=== PATIENT | female | born 1975 | race Caucasian/White ===

== ENCOUNTER 2016-08-11 08:55 | Emergency (ER) | payer SELFPAY ==
[~2016-08-11] VITALS: Ht 160 cm; Wt 75.0 kg
[~2016-08-11 08:55] MED LIST: AMOX875 PO; CETI10 PO; FLON0.053; PERM5CRE TOP; PRED20 PO
[2016-08-11 08:57] VITALS: BP 144/88; PULSE 81; RESP 15; TEMP 98.3; O2SAT 98
[2016-08-11 10:02] VITALS: BP 141/85; PULSE 66; RESP 16; O2SAT 100
[2016-08-11] MEDS ORDERED: SODIUM CHLOR 0.9% 1000 ML INJ 1,000 ML IV SCH (10:41)
[2016-08-11] MEDS ORDERED: SODIUM CHLORIDE 0.9% FLUSH 10 ML FLUSH IV FLUSH PRN (10:45)
[2016-08-11] MEDS ORDERED: ONDANSETRON HCL 4 MG/2 ML VIAL IVP ONE (10:45)
[2016-08-11] MEDS ORDERED: MORPHINE SULFATE 4 MG/ML INJ IV PUSH ONE (10:45)
--- NOTE | 2016-08-11 10:51 | PD ---
HPI Chief Complaint: Abdominal Pain Time Seen by Provider: 10:44 Travel History International Travel<30 days: No Contact w/Intl Traveler<30days: No Traveled to known affect area: No History of Present Illness HPI 41-year-old female presents the emergency department with right upper quadrant pain which started this morning is gotten progressively worse since waking this morning. Patient states history of gallstone in the past verified on ultrasound which has not been recently until today. Patient states she did have a similar episode approximately 3 months ago where they ultrasound was performed. Patient has been doing fine until this morning. Patient states the pain is now progressed to 9/10 with nausea and vomiting 3 prior to arrival. He only had coffee this morning but no food. She denies pain yesterday or the liver, chills, diarrhea, or changes in her urine. She is allergic to Percocet and aspirin. PFSH Past Medical History Cancer: No Diminished Hearing: No Genitourinary: Yes Respiratory: No Influenza Vaccination: No ?: Not LMP: 2015 : 4 Para: 2 Miscarriage: 0 : 1 Past Surgical History Section: Yes Gynecologic Surgery: Yes (TUBAL LIGATION) Tonsillectomy: Yes (ADENOIDS) Other Surgery: No Social History Alcohol Use: Yes (OCCASIONALLY) Tobacco Use: Yes (1 PPD) Substance Use: No Allergies-Medications (Allergen,Severity, Reaction): Coded Allergies: Aspirin (Verified Allergy, Mild, Rash, 08/11/16) Percocet (Verified Allergy, Mild, WEAK NAUSEA AND LIGHTHEADED, 08/11/16) Reported Meds & Prescriptions Reported Meds & Active Scripts Active Zofran (Ondansetron HCl) 4 Mg Tab 4 Mg PO Q6HR PRN Review of Systems Except as stated in HPI: all other systems reviewed are Neg General / Constitutional: No: Fever, Chills Eyes: No: Visual changes HENT: No: Headaches Cardiovascular: No: Chest Pain or Discomfort Respiratory: No: Shortness of Breath Gastrointestinal: Positive: Nausea, Vomiting, Abdominal Pain, No: Diarrhea Genitourinary: No: Dysuria Musculoskeletal: No: Pain Skin: No Rash Neurologic: No: Weakness Psychiatric: No: Depression Endocrine: No: Polydipsia Hematologic/Lymphatic: No: Easy Bruising Physical Exam Narrative GENERAL: She appears in [id number] distress. SKIN: Warm and dry. Normal color. Normal turgor. HEAD: Atraumatic. Normocephalic. EYES: Pupils equal and round. No scleral icterus. No injection or drainage. ENT: No nasal bleeding or discharge. Mucous membranes pink and moist. Pharynx is clear. Airway is patent. NECK: Trachea midline. Supple and nontender. CARDIOVASCULAR: Regular rate and rhythm. RESPIRATORY: No accessory muscle use. Clear to auscultation. Breath sounds equal bilaterally. GASTROINTESTINAL: Abdomen soft, moderate right upper quadrant tenderness, nondistended. Hepatic and splenic margins not palpable. No CVA tenderness. MUSCULOSKELETAL: Extremities without clubbing, cyanosis, or edema. No obvious deformities. NEUROLOGICAL: Awake and alert. No obvious cranial nerve deficits. Motor grossly within normal limits. Five out of 5 muscle strength in the arms and legs. Normal speech. PSYCHIATRIC: Appropriate mood and affect; insight and judgment normal. Data Data Last Documented VS Vital Signs Date Time Temp Pulse Resp B/P Pulse Ox O2 Delivery O2 Flow Rate FiO2 08/11/16 10:02 66 16 141/85 100 Room Air 08/11/16 08:57 98.3 Orders Complete Blood Count With Diff (08/11/16 10:41) Comprehensive Metabolic Panel (08/11/16 10:41) Lipase (08/11/16 10:41) Lactic Acid (08/11/16 10:41) Prothrombin Time / Inr (Pt) (08/11/16 10:41) Act Partial Throm Time (Ptt) (08/11/16 10:41) Urinalysis - C+S If Indicated (08/11/16 10:41) Us Abdomen Gallbladder (08/11/16 ) Iv Access Insert/Monitor (08/11/16 10:41) Ecg Monitoring (08/11/16 10:41) Oximetry (08/11/16 10:41) NPO (08/11/16 10:41) Morphine Inj (Morphine Inj) (08/11/16 10:45) Ondansetron Inj (Zofran Inj) (08/11/16 10:45) Sodium Chlor 0.9% 1000 Ml Inj (Ns 1000 M (08/11/16 10:41) Sodium Chloride 0.9% Flush (Ns Flush) (08/11/16 10:45) Electrocardiogram (08/11/16 10:41) Ed Urine Pregnancytest Poc (08/11/16 10:41) Hydromorphone Pf Inj (Dilaudid Pf Inj) (08/11/16 11:30) Labs Laboratory Tests Test 08/11/16 08/11/16 10:45 10:48 White Blood Count 9.3 TH/MM3 Red Blood Count 4.66 MIL/MM3 Hemoglobin 14.8 GM/DL Hematocrit 42.5 % Mean Corpuscular Volume 91.3 FL Mean Corpuscular Hemoglobin 31.8 PG Mean Corpuscular Hemoglobin 34.8 % Concent Red Cell Distribution Width 12.2 % Platelet Count 180 TH/MM3 Mean Platelet Volume 9.4 FL Neutrophils (%) (Auto) 71.0 % Lymphocytes (%) (Auto) 21.5 % Monocytes (%) (Auto) 5.9 % Eosinophils (%) (Auto) 1.2 % Basophils (%) (Auto) 0.4 % Neutrophils # (Auto) 6.6 TH/MM3 Lymphocytes # (Auto) 2.0 TH/MM3 Monocytes # (Auto) 0.5 TH/MM3 Eosinophils # (Auto) 0.1 TH/MM3 Basophils # (Auto) 0.0 TH/MM3 CBC Comment DIFF FINAL Differential Comment Prothrombin Time 11.4 SEC Prothromb Time International 1.0 RATIO Ratio Activated Partial 28.2 SEC Thromboplast Time Sodium Level 142 MEQ/L Potassium Level 4.4 MEQ/L Chloride Level 109 MEQ/L Carbon Dioxide Level 28.7 MEQ/L Anion Gap 4 MEQ/L Blood Urea Nitrogen 10 MG/DL Creatinine 0.67 MG/DL Estimat Glomerular Filtration 98 ML/MIN Rate Random Glucose 92 MG/DL Lactic Acid Level 1.1 mmol/L Calcium Level 9.3 MG/DL Total Bilirubin 0.2 MG/DL Aspartate Amino Transf 21 U/L (AST/SGOT) Alanine Aminotransferase 23 U/L (ALT/SGPT) Alkaline Phosphatase 77 U/L Total Protein 7.6 GM/DL Albumin 3.7 GM/DL Lipase 199 U/L Urine Color LIGHT-YELLOW Urine Turbidity CLEAR Urine pH 6.0 Urine Specific [place] 1.002 Urine Protein NEG mg/dL Urine Glucose (UA) NEG mg/dL Urine Ketones NEG mg/dL Urine Occult Blood NEG Urine Nitrite NEG Urine Bilirubin NEG Urine Urobilinogen LESS THAN 2.0 MG/DL Urine Leukocyte Esterase NEG Urine RBC LESS THAN 1 /hpf Urine WBC 1 /hpf Urine Squamous Epithelial <1 /hpf Cells Urine Bacteria OCC /hpf Microscopic Urinalysis Comment CULT NOT INDICATED MDM Medical Decision Making Medical Screen Exam Complete: Yes Emergency Medical Condition: Yes Medical Record Reviewed: Yes Differential Diagnosis Right upper quadrant pain. Nausea. Vomiting. Gallbladder disease. Narrative Course Patient is medically stable at time of exam. Labs are Ordered including CBC, CMP, lactic acid, lipase, urinalysis, and urine . IV access is obtained and the patient is given 4 mg of Zofran IV as well as 4 mg morphine IV. Ultrasound of the gallbladder is ordered. Patient requires 1 mg Dilantin after ultrasound due to some increased pain. CBC is unremarkable. CMP is unremarkable. Lactic acid is normal. Lipase is normal. Urinalysis is unremarkable. Ultrasound confirms a gallstone is present no thickening is no evidence of gallbladder. Patient is discussed with and evaluated by Dr. Man who feels the patient is able for discharge with outpatient follow-up. Diagnosis Primary Impression: Gall bladder pain Additional Impression: Recurrent biliary colic Referrals: [facility] Patient Instructions: Gallstones (ED), General Instructions Additional Instructions: CBC is unremarkable. CMP is unremarkable. Lactic acid is normal. Lipase is normal. Urinalysis is unremarkable. Ultrasound confirms a gallstone is present no thickening is no evidence of gallbladder. Patient is discussed with and evaluated by Dr. Man who feels the patient is able for discharge with outpatient follow-up. Med/Other Pt SpecificInfo: Prescription(s) given Scripts Ondansetron (Zofran)4 Mg Tab4 Mg PO Q6HR PRN (NAUSEA OR VOMITING) #12 TAB Prov:Jailene Man MD 08/11/16 Disposition: 01 DISCHARGE HOME Condition: Stable Donovan Adan Aug 11, 2016 10:51
[2016-08-11 10:57] LABS: AUTOMATED NEUTROPHIL # 6.6 TH/MM3 (1.8-7.7); BASOPHIL % 0.4 % (0.0-2.0); EOSINOPHIL # 0.1 TH/MM3 (0-0.4); EOSINOPHIL % 1.2 % (0.0-4.0); HEMATOCRIT 42.5 % (35.0-46.0); HEMO FLAGS DIFF FINAL; LYMPH % 21.5 % (9.0-44.0); MEAN CELL VOLUME 91.3 FL (80.0-100.0); MEAN CORPUSCULAR HEMOGLOBIN 31.8 PG (27.0-34.0); MEAN CORPUSCULAR HGB CONC 34.8 % (32.0-36.0); MONO % 5.9 % (0.0-8.0); PLATELET COUNT 180 TH/MM3 (150-450); RED BLOOD COUNT 4.66 MIL/MM3 (4.00-5.30); RED CELL DISTRIBUTION WIDTH 12.2 % (11.6-17.2); WHITE BLOOD COUNT 9.3 TH/MM3 (4.0-11.0)
[2016-08-11 11:07] LABS: APTT (PATIENT) 28.2 SEC (24.3-30.1); PROTHROMBIN TIME - PATIENT 11.4 SEC (9.8-11.6)
[2016-08-11 11:15] LABS: ALT (GPT) 23 U/L (10-53); ANION GAP 4 MEQ/L (5-15); AST (GOT) 21 U/L (15-37); BICARBONATE 28.7 MEQ/L (21.0-32.0); BLOOD UREA NITROGEN 10 MG/DL (7-18); CHLORIDE 109 MEQ/L (98-107); GLOMERULAR FILTRATION RATE 98 ML/MIN (>89); POTASSIUM 4.4 MEQ/L (3.5-5.1); SODIUM (NA) 142 MEQ/L (136-145)
[2016-08-11 11:17] LABS: ALKALINE PHOSPHATASE 77 U/L (45-117); TOTAL BILIRUBIN ADULT 0.2 MG/DL (0.2-1.0)
[2016-08-11] MEDS ORDERED: HYDROmorphone HCL PF 1 MG/ML VIAL IV PUSH ONE (11:30)
[2016-08-11 11:35] LABS: BACTERIA, URINE OCC /hpf; BLOOD, URINE NEG (NEG); COMMENT (UR) CULT NOT INDICATED; CULTURE IF INDICATED CULT NOT INDICATED; GLUCOSE,URINE NEG (NEG); KETONE, URINE NEG (NEG); NITRITE,URINE NEG (NEG); SQUAMOUS EPITHELIAL CELL URINE <1 /hpf (0-5); URINE COLOR LIGHT-YELLOW (YELLW/STRAW)
--- NOTE | 2016-08-11 12:15 | RADRPT ---
EXAM DATE/TIME: 08/11/2016 10:51 [facility] COMPARISON: No previous studies available for comparison. INDICATIONS : Right upper quadrant pain. MEDICAL HISTORY : Right upper quadrant pain. UTI. SURGICAL HISTORY : Tonsillectomy. Tubal ligation. section. Adenoidectomy. ENCOUNTER: Initial ACUITY: 1 day PAIN SCORE: 6/10 LOCATION: Right upper quadrant MEASUREMENTS: LIVER: 16.2 cm length COMMON DUCT: 4 mm RIGHT KIDNEY: 9.7 x 5.0 x 3.7 cm FINDINGS: LIVER: Normal echotexture without focal lesion or ductal dilatation. COMMON DUCT: No intraluminal mass or stone visualized. GALLBLADDER: There is a 1.9 cm gallstone seen in the gallbladder neck. The stone did not appear to be mobile. The gallbladder is distended. Gallbladder wall is not thickened measuring 2 mm. PANCREAS: The visualized portions are within normal limits. RIGHT KIDNEY: There does appear to be some cortical thinning seen at the superior aspect of the right kidney. No hy dronephrosis is seen. There is a 1.7 cm cyst at the mid right kidney. CONCLUSION: 1. Nonmobile gallstone. The gallbladder is distended but not significantly thickened. This can be cor related with the patient's right upper quadrant pain. 2. Suspected cortical thinning at the superior right kidney. Jan Casanova MD on August 11, 2016 at 12:08 Board Certified Radiologist. This report was verified electronically.
[2016-08-11] MEDS ORDERED: ZOFR4TAB PO (12:31)
[2016-08-11 12:34] VITALS: BP 108/62; PULSE 59; RESP 14; O2SAT 98
--- NOTE | 2016-08-12 17:12 | EKG ---
Date Performed: 08/11/2016 Time Performed: 11:23:47 PTAGE: 41 years EKG: SINUS BRADYCARDIA BORDERLINE ECG NO PREVIOUS TRACING DOCTOR: Julia Lyle Interpretating Date/Time 08/12/2016 17:08:04
== END 2016-08-11 12:49 | disposition home or self-care (01) ==
LOC: NEPD 08:55
DX: K80.70 Calculus of gallbladder and bile duct without cholecystitis without obstruction (principal); F17.210 Nicotine dependence, cigarettes, uncomplicated; R11.2 Nausea with vomiting, unspecified; R00.1 Bradycardia, unspecified
CPT/HCPCS: 76705; 80053; 81001; 83605; 83690; 84703; 85025; 85610; 85730; 93005; 96361; 96374; 96375; 99285; J1170; J2270; J2405; J7030

== ENCOUNTER 2017-04-06 20:47 | Emergency (ER) | payer BC ==
[~2017-04-06 20:47] MED LIST changes: -AMOX875 PO; -CETI10 PO; -FLON0.053; -PERM5CRE TOP; -PRED20 PO; +ZOFR4TAB PO
[2017-04-06 20:49] VITALS: BP 117/75; PULSE 106; RESP 16; TEMP 101.8; O2SAT 100
[2017-04-06] MEDS ORDERED: ACETAMINOPHEN 325 MG TAB PO ONE (21:45)
[2017-04-06] MEDS ORDERED: SODIUM CHLOR 0.9% 1000 ML INJ 1,000 ML IV ONE ×2 (21:45→23:45)
--- NOTE | 2017-04-06 22:19 | PD ---
HPI Chief Complaint: Cold / Flu Symptoms Time Seen by Provider: 21:20 Travel History International Travel<30 days: No Contact w/Intl Traveler<30days: No Traveled to known affect area: No History of Present Illness HPI The patient is a 41 year old female who presents to the [facility] emergency department with a history of febrile illness that she reports began on Thursday 4 days ago. The patient reports that her T-max has been 101.9. The patient reports that she does have a cough, however it is no worse than usual. She reports that she has a chronic smoker's cough. The patient reports that she has had some mild nasal congestion, frontal headache, however no sore throat or rhinorrhea. She reports that today she had 2 episodes of vomiting. She denies having any diarrhea. She reports that she has had urinary frequency and urgency and has a remote history of having kidney infection in the past. She reports that the symptoms feel similar. She reports having bilateral flank pain worse on the right compared to the left. She denies having any diarrhea. Her last bowel movement was earlier today. Review of systems otherwise, the patient denies having any neck pain, chest pain, chest pressure, shortness of breath, abdominal pain, or neurologic symptoms. LMP: Reportedly postmenopausal PFSH Past Medical History Narrative Medical The patient's past medical history is significant for rectal prolapse into her vagina diagnosed 2 weeks ago by her community midwife pending surgery, history of a remote history of kidney infection, incidental large gallstone in her gallbladder. Her primary care physician is Dr. Morgan. Cancer: No Diminished Hearing: No Genitourinary: Yes Medical other: Yes (gall stones) Respiratory: No ?: Not : 4 Para: 2 Miscarriage: 0 : 1 Past Surgical History Narrative Surgical The patient's past surgical history is significant for tympanostomy tube placement, Section: Yes Gynecologic Surgery: Yes (TUBAL LIGATION) Tonsillectomy: Yes (ADENOIDS) Other Surgery: No Social History Alcohol Use: Yes (OCCASIONALLY) Tobacco Use: Yes (1 PPD) Substance Use: No Allergies-Medications (Allergen,Severity, Reaction): Coded Allergies: aspirin (Verified Allergy, Mild, Rash, 04/06/17) oxycodone (Verified Allergy, Mild, WEAK NAUSEA AND LIGHTHEADED, 04/06/17) Reported Meds & Prescriptions Reported Meds & Active Scripts Active Phenergan (Promethazine HCl) 25 Mg Tablet 25 Mg PO Q6H PRN Cipro (Ciprofloxacin HCl) 500 Mg Tab 500 Mg PO BID 7 Days Review of Systems Except as stated in HPI: all other systems reviewed are Neg General / Constitutional: Positive: Fever Eyes: No: Visual changes HENT: Positive: Congestion, No: Headaches, Sore Throat, Rhinorrhea Cardiovascular: No: Chest Pain or Discomfort Respiratory: Positive: Cough, No: Shortness of Breath Gastrointestinal: Positive: Nausea, Vomiting, No: Diarrhea, Abdominal Pain Genitourinary: Positive: Urgency, Frequency, Flank Pain, No: Dysuria Musculoskeletal: Positive: Myalgias, Pain Skin: No Rash Neurologic: Positive: Headache, No: Weakness, Focal Abnormalities, Change in Mentation, Slurred Speech, Sensory Disturbance Psychiatric: No: Depression Endocrine: No: Polydipsia Hematologic/Lymphatic: No: Easy Bruising Physical Exam Narrative General: The patient is a well-developed well-nourished female in no acute distress. Head and Neck exam: Head is normocephalic atraumatic. Eyes: EOMI, pupils are equal round and reactive to light. Nose: Midline septum with pink mucous membranes Mouth: Dentition unremarkable. Moist mucus membranes. Posterior oropharynx is not erythematous. No tonsillar hypertrophy. Uvula midline. Airway patent. Neck: No palpable lymphadenopathy. No nuchal rigidity. No thyromegaly. Cardiovascular: Sinus tachycardia in the low 100s, however she is currently afebrile without murmurs, gallops, or rubs. No pulse deficit to the extremities on simultaneous auscultation and palpation of her radial artery. Lungs: Clear to auscultation bilaterally. No wheezes, rhonchi, or rales. Abdomen: Soft, without tenderness to palpation in all 4 quadrants of the abdomen. No guarding, rebound, or rigidity. Normal bowel sounds are audible. No tenderness on palpation of McBurney's point. Negative Alexandre sign. Extremities: No clubbing, cyanosis, or edema. 2+ pulses in all 4 extremities. No calf tenderness on palpation. Back: No spinous process tenderness to palpation. The patient has no CVA tenderness noted on palpation. Neurologic Exam: Grossly nonfocal. Skin Exam: No rash noted. Intact skin that is warm and dry. Data Data Last Documented VS Vital Signs Date Time Temp Pulse Resp B/P (MAP) Pulse Ox O2 Delivery O2 Flow Rate FiO2 04/06/17 22:21 97 Room Air 04/06/17 20:49 101.8 106 16 Orders Orders Complete Blood Count With Diff (04/06/17 21:42) Comprehensive Metabolic Panel (04/06/17 21:42) Lipase (04/06/17 21:42) Magnesium (Mg) (04/06/17 21:42) Blood Culture (04/06/17 21:42) Urinalysis - C+S If Indicated (04/06/17 21:42) Beta Hydroxybutyrate (Acetone) (04/06/17 21:42) Influenzae A/B Antigen (04/06/17 21:42) Chest, Single Ap (04/06/17 21:42) Iv Access Insert/Monitor (04/06/17 21:42) Ecg Monitoring (04/06/17 21:42) Oximetry (04/06/17 21:42) Ed Urine Pregnancytest Poc (04/06/17 21:42) Sodium Chlor 0.9% 1000 Ml Inj (Ns 1000 M (04/06/17 21:45) Acetaminophen (Tylenol) (04/06/17 21:45) Ondansetron Inj (Zofran Inj) (04/06/17 22:45) Oral Rehydration (04/06/17 22:45) Urine Culture (04/06/17 22:00) Ceftriaxone Inj (Rocephin Inj) (04/06/17 23:45) Sodium Chlor 0.9% 1000 Ml Inj (Ns 1000 M (04/06/17 23:45) Ed Discharge Order (04/07/17 00:25) Labs Laboratory Tests Test 04/06/17 22:00 White Blood Count 12.1 TH/MM3 Red Blood Count 4.20 MIL/MM3 Hemoglobin 13.0 GM/DL Hematocrit 37.6 % Mean Corpuscular Volume 89.5 FL Mean Corpuscular Hemoglobin 31.0 PG Mean Corpuscular Hemoglobin Concent 34.7 % Red Cell Distribution Width 12.0 % Platelet Count 201 TH/MM3 Mean Platelet Volume 9.0 FL Neutrophils (%) (Auto) 78.8 % Lymphocytes (%) (Auto) 12.1 % Monocytes (%) (Auto) 8.4 % Eosinophils (%) (Auto) 0.4 % Basophils (%) (Auto) 0.3 % Neutrophils # (Auto) 9.6 TH/MM3 Lymphocytes # (Auto) 1.5 TH/MM3 Monocytes # (Auto) 1.0 TH/MM3 Eosinophils # (Auto) 0.1 TH/MM3 Basophils # (Auto) 0.0 TH/MM3 CBC Comment DIFF FINAL Differential Comment Urine Color YELLOW Urine Turbidity HAZY Urine pH 5.5 Urine Specific [place] 1.017 Urine Protein 30 mg/dL Urine Glucose (UA) NEG mg/dL Urine Ketones NEG mg/dL Urine Occult Blood MOD Urine Nitrite POS Urine Bilirubin NEG Urine Urobilinogen LESS THAN 2.0 MG/DL Urine Leukocyte Esterase LARGE Urine RBC 10 /hpf Urine WBC /hpf Urine WBC Clumps OCC Urine Squamous Epithelial Cells 5 /hpf Urine Bacteria MOD /hpf Microscopic Urinalysis Comment CULTURE INDICATED Blood Urea Nitrogen 19 MG/DL Creatinine 0.82 MG/DL Random Glucose 94 MG/DL Total Protein 7.5 GM/DL Albumin 3.2 GM/DL Calcium Level 8.8 MG/DL Magnesium Level 2.2 MG/DL Alkaline Phosphatase 67 U/L Aspartate Amino Transf (AST/SGOT) 15 U/L Alanine Aminotransferase (ALT/SGPT) 17 U/L Total Bilirubin 0.3 MG/DL Sodium Level 141 MEQ/L Potassium Level 3.7 MEQ/L Chloride Level 108 MEQ/L Carbon Dioxide Level 26.1 MEQ/L Anion Gap 7 MEQ/L Estimat Glomerular Filtration Rate 78 ML/MIN Lipase 138 U/L B-Hydroxybutyrate 0.09 MMOL/L MDM Medical Decision Making Medical Screen Exam Complete: Yes Emergency Medical Condition: Yes Medical Record Reviewed: Yes Interpretation(s) Last Impressions Chest X-Ray 04/06/172141 Signed Impressions: Service Date/Time: Thursday, April 06, 2017 21:59 - CONCLUSION: No acute disease. Leopoldo Mondragon MD Differential Diagnosis Pyelonephritis, versus cystitis, versus influenza, versus pneumonia, versus sepsis Narrative Course During the course of the patient's emergency department visit, the patient's history, examination, and differential diagnosis were reviewed with the patient. The patient was placed on a quality assurance monitor final with oximetry and frequent blood pressure monitoring. The patient had IV access obtained and blood work sent for analysis. The patient was initially provided normal saline 1 L IV fluid bolus, Tylenol for fever, Zofran for nausea. The patient was started on oral rehydration therapy. The patient's laboratory studies were reviewed and remarkable for a white count of 12.1, hemoglobin 13, platelets 201 with 78.8 neutrophils, CMP is remarkable for chloride of 108, BUN 19, GFR 78, albumin 3.2, lipase 138 beta hydroxybutyrate is 0.0 urinalysis reveals a moderate occult blood positive nitrite large leukocyte esterase 10 RBCs innumerable WBCs, occasional white blood cell clumps, moderate bacteria influenza testing is negative. A chest x- ray that shows no acute abnormality The patient has been tolerating p.o. hydration while in the emergency department. The patient will be discharged home on ciprofloxacin for antibiotic and Phenergan for nausea. The patient is resting comfortably and feels better, is alert and in no distress. The patient's results and examination findings were discussed with the patient. The repeat examination is unremarkable and benign. The history, exam, diagnostic testing, and current condition do not suggest any significant pathology to warrant further testing, continued ED treatment, admission, or surgical evaluation at this point. The vital signs have been stable. The patient does not have uncontrollable pain, intractable vomiting, or other significant symptoms. The patient's condition is stable and appropriate for discharge. The patient will pursue further outpatient evaluation with a primary care physician or other designated or consulting physician as indicated in the discharge instructions. The patient expressed understanding and was agreeable with this plan. Diagnosis Primary Impression: Pyelonephritis Referrals: Primary Care Physician 2 days Patient Instructions: General Instructions, Kidney Infection (ED) Med/Other Pt SpecificInfo: Prescription(s) given Scripts Promethazine (Phenergan) 25 Mg Tablet 25 MG PO Q6H Y for NAUSEA OR VOMITING, #6 TAB 0 Refills Prov: Xin Steven MD 04/06/17 Ciprofloxacin (Cipro) 500 Mg Tab 500 MG PO BID for Infection for 7 Days, #14 TAB 0 Refills Prov: Xin Steven MD 04/06/17 Disposition: 01 DISCHARGE HOME Condition: Stable Xin Steven MD Apr 06, 2017 22:19
[2017-04-06 22:21] VITALS: O2SAT 97
--- NOTE | 2017-04-06 22:30 | RADRPT ---
EXAM DATE/TIME: 04/06/2017 21:59 [facility] COMPARISON: No previous studies available for comparison. INDICATIONS : Fever. MEDICAL HISTORY : None. SURGICAL HISTORY : None. ENCOUNTER: Initial ACUITY: 3 days PAIN SCORE: 0/10 LOCATION: Bilateral chest FINDINGS: A single view of the chest demonstrates the lungs to be symmetrically aerated without evidence of mas s, infiltrate or effusion. The cardiomediastinal contours are unremarkable. Osseous structures are intact. CONCLUSION: No acute disease. Leopoldo Mondragon MD on April 06, 2017 at 22:27 Board Certified Radiologist. This report was verified electronically.
[2017-04-06 22:45] LABS: AUTOMATED NEUTROPHIL # 9.6 TH/MM3 (1.8-7.7); BASOPHIL % 0.3 % (0.0-2.0); EOSINOPHIL # 0.1 TH/MM3 (0-0.4); EOSINOPHIL % 0.4 % (0.0-4.0); HEMATOCRIT 37.6 % (35.0-46.0); LYMPH % 12.1 % (9.0-44.0); LYMPHOCYTE # 1.5 TH/MM3 (1.0-4.8); MEAN CELL VOLUME 89.5 FL (80.0-100.0); MEAN CORPUSCULAR HGB CONC 34.7 % (32.0-36.0); MONO % 8.4 % (0.0-8.0); NEUT % 78.8 % (16.0-70.0); PLATELET COUNT 201 TH/MM3 (150-450); WHITE BLOOD COUNT 12.1 TH/MM3 (4.0-11.0)
[2017-04-06] MEDS ORDERED: ONDANSETRON HCL 4 MG/2 ML VIAL IV ONE (22:45)
[2017-04-06 22:53] LABS: BACTERIA, URINE MOD /hpf; BILIRUBIN, URINE NEG (NEG); BLOOD, URINE MOD (NEG); GLUCOSE,URINE NEG (NEG); KETONE, URINE NEG (NEG); NITRITE,URINE POS (NEG); PH, URINE 5.5 (5.0-8.5); SQUAMOUS EPITHELIAL CELL URINE 5 /hpf (0-5); URINE COLOR YELLOW (YELLW/STRAW); URINE LEUKOCYTE ESTERASE LARGE (NEG); WHITE BLOOD CELL CLUMPS OCC
[2017-04-06 23:15] LABS: ALBUMIN 3.2 GM/DL (3.4-5.0); ALT (GPT) 17 U/L (10-53); AST (GOT) 15 U/L (15-37); BICARBONATE 26.1 MEQ/L (21.0-32.0); BLOOD UREA NITROGEN 19 MG/DL (7-18); CALCIUM 8.8 MG/DL (8.5-10.1); CHLORIDE 108 MEQ/L (98-107); CREATININE 0.82 MG/DL (0.50-1.00); GLOMERULAR FILTRATION RATE 78 ML/MIN (>89); GLUCOSE,RANDOM 94 MG/DL (74-106); MAGNESIUM 2.2 MG/DL (1.5-2.5); SODIUM (NA) 141 MEQ/L (136-145)
[2017-04-06 23:17] LABS: ALKALINE PHOSPHATASE 67 U/L (45-117); TOTAL BILIRUBIN ADULT 0.3 MG/DL (0.2-1.0); TOTAL PROTEIN 7.5 GM/DL (6.4-8.2)
[2017-04-06] MEDS ORDERED: cefTRIAXone INJ 1,000 MG in SODIUM CHLORIDE 0.9% INJ 100 ML IV ONE (23:45)
[2017-04-06] MEDS ORDERED: PROM25TA10 PO (23:58)
[2017-04-06] MEDS ORDERED: CIPR-9 PO (23:58)
== END 2017-04-07 00:49 | disposition home or self-care (01) ==
LOC: NEPC 20:47
DX: N12 Tubulo-interstitial nephritis, not specified as acute or chronic (principal); B96.20 Unspecified Escherichia coli [E. coli] as the cause of diseases classified elsewhere; F17.210 Nicotine dependence, cigarettes, uncomplicated; Z88.5 Allergy status to narcotic agent
CPT/HCPCS: 71045; 80053; 81001; 82010; 83690; 83735; 84703; 85025; 87040; 87077; 87086; 87186; 87804; 96361; 96365; 96375; 99284; J0696; J2405; J7030